=== PATIENT | female | born 1965 | race Caucasian/White ===

== ENCOUNTER 2025-02-21 12:11 | Observation (INO) | payer OTHER ==
--- OUTSIDE RECORDS SUMMARY | 2025-02-21 12:14 | XMS REPORT | Clinical Summary ---
Author Name Unknown Organization [facility] Address [address] [place] [address] Care Team Providers Care Campground Caretaker Name Role Phone Unavailable Primary Care Provider Unavailabl e Social History Tobacco Use Types Packs/Day Years Used Date Smoking Tobacco: Never Assessed Comments Unknown Sex and Gender Information Value Date Recorded Sex Assigned at Not on file Legal Sex Female 4:28 PM CDT Gender Identity Not on file Sexual Orientation Not on file Plan of Treatment Not on file Insurance [employer]
[2025-02-21] MEDS ORDERED: NA CHLORIDE 0.9% 500 ML ONE (12:48)
[2025-02-21] MEDS ORDERED: KETOROLAC 30 MG/ML INJ ONE (12:48)
[2025-02-21 13:08] LABS: Absolute Lymphocytes (CBC) 1.8 K/uL (0.7-4.9); Hematocrit 38.5 % (36.0-45.0); Hemoglobin 12.6 g/dL (12.0-15.0); MCH 26.3 pg (27.0-35.0); MCHC 32.8 g/dL (32.0-36.0); MCV 80.2 fL (80-100); MPV 8.4 fL (7.6-11.3); Nucleated RBC Absolute Count 0.0 (0-0); Nucleated Red Blood Cells % 0.1 % (0-0); RBC Red Blood Cell Count 4.80 M/uL (3.86-4.86); White Blood Count 4.80 thou/uL (4.3-10.9)
[2025-02-21 13:55] LABS: ALT/SGPT 17 U/L (13-56); Albumin 3.7 g/dL (3.4-5.0); Albumin/Globulin Ratio 0.9 (1.1-1.8); Alkaline Phosphatase 73 U/L (45-117); Anion Gap 7.9 mEq/L (5.0-15.0); BUN Blood Urea Nitrogen 19 mg/dL (7-18); Globulin 3.9 g/dL (2.3-3.5); Glucose Level 103 mg/dL (74-106); Potassium 3.9 mEq/L (3.5-5.1)
[2025-02-21 13:57] LABS: AST/SGOT < 10 U/L (15-37)
--- NOTE | 2025-02-21 14:40 | RAD REPORT ---
EXAM: CT Ct Stroke Brain Wo Cont HISTORY: STROKE ALERT COMPARISON: None TECHNIQUE: Multiple contiguous axial images were obtained for a CT of the brain without contrast. Sag ittal and coronal reformats were performed. One or more of the following dose reduction techniques were used: Automated exposure control, adjus tment of the mA and kV according to patient size, and iterative reconstruction. Unless otherwise specified, incidental findings do not require dedicated imaging follow-up. FINDINGS: No evidence of hydrocephalus, intracranial hemorrhage, or extra-axial fluid collection. Mild brain atrophy with mild periventricular and deep white matter chronic microvascular ischemic ch anges present. Partially empty sella incidentally noted. The calvarium is intact. The visualized paranasal sinuses and mastoid air cells are essentially clear . IMPRESSION: No evidence of acute intracranial abnormality. THIS REPORT CONTAINS FINDINGS THAT MAY BE CRITICAL TO PATIENT CARE. The findings were verbally commun icated via telephone to Vignesh Alba on 02/21/2025 2:36 PM.
[2025-02-21] MEDS ORDERED: LORazepam 2 MG/ML VIAL ONE ×2 (14:41→17:42)
[2025-02-21] MEDS ORDERED: MORPHINE 4 MG/ML SYR ONE (14:41)
--- NOTE | 2025-02-21 14:42 | RAD REPORT ---
EXAMINATION: CT Neck Angio CLINICAL INDICATION: Female, 59 years old. [facility] dizziness Bed Name: 18 TECHNIQUE: Axial CT images were obtained from the aortic arch to the skull base after intravenous con trast utilizing angiographic protocol. Multiplanar reformats, as well as 3D post-processing (maximum intensity projection images, volume rendered images and/or shaded surface rendered images) w ere generated and reviewed. One or more of the following dose reduction techniques were used: Automated exposure control, adjustment of the mA and/or kV according to patient size, and/or iterativ e reconstruction. Unless otherwise specified, incidental findings do not require dedicated imaging follow-up. COMPARISON: No prior exam. FINDINGS: AORTA: The imaged aortic arch is normal. Two-vessel arch configuration noted, a normal variant. CCA: No artifact The common carotid arteries are patent and normal in caliber. ICA/ECA: Bilateral internal and external carotid arteries are patent. There is no significant interna l carotid artery stenosis. VERTEBRAL: The cervical vertebral arteries are patent to the skull base. Vertebral arteries are codom inant. SOFT TISSUE: No significant neck soft tissue abnormalities. The visualized lung apices are clear. 3D images confirm these findings. IMPRESSION: No significant flow abnormality of the neck vessels is identified. NASCET criteria used to quantify ICA stenosis, with the following grading scheme: Mild 0-49% stenosis Moderate 50-69% stenosis Severe 70-99% stenosis Reference: [place] Symptomatic Carotid Endarterectomy Trial Collaborators; Wan CINTRON, Arianna STODDARD, Katy RB, et al. Beneficial effect of carotid endarterectomy in symptomatic patients with high-grade carotid stenosis. N Engl J Med. 1990Jan 06;325(7):445-53.
--- NOTE | 2025-02-21 14:43 | RAD REPORT ---
EXAMINATION: CTA HEAD CLINICAL INDICATION: Female, 59 years old. DIZZINESS TECHNIQUE: Axial CT images were obtained through the head after intravenous contrast utilizing angiog raphic protocol with 3D post-processing (maximum intensity projection images, volume rendered images and/or shaded surface rendered images). One or more of the following dose reduction technique s were used: Automated exposure control, adjustment of the mA and/or kV according to patient size, and/or iterative reconstruction. Unless otherwise specified, incidental findings do not require dedic ated imaging follow-up. COMPARISON: No prior exam. FINDINGS: ICA: The petrous, cavernous, and supraclinoid segments of the bilateral internal carotid arteries are normal. KARI: Anterior cerebral arteries are normal bilaterally. The anterior communicating artery is patent. MCA: Middle cerebral arteries are normal bilaterally. FOUNTAIN BRUSH ASSEMBLER: Posterior cerebral arteries are normal bilaterally. Vertebrobasilar: The vertebral arteries are patent. The basilar artery is patent with mild luminal ir regularity along its proximal to mid aspect. 3D images confirm these findings. IMPRESSION: No evidence of hemodynamically significant stenosis or large vessel occlusion.
[2025-02-21 15:11] LABS: PT Prothrombin Time 12.2 SECONDS (10-13.0); PTT, Activated Partial Thromb 31.7 SECONDS (27.2-37.4); Protime INR 1.08
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
--- NOTE | 2025-02-21 15:34 | ER ---
Nurse's Notes [facility] Name: Kavya Schwartz Age: 59 yrs Sex: Female : 1965 Arrival Date: 02/21/2025 Time: 12:11 Bed 18 Private MD: Diagnosis: Weakness;Pain, unspecified;Paresthesia of skin Presentation: 02/21 12:26 Chief complaint: EMS states: toned out to [place] as patient was being kicked out me1 because they didn't have any downstairs rooms and has severe pain all over. At baseline patient has chronic pain but reports her pain is much worse than normal and is 10/10 "numb/tingling/painful" all over, "from bottom to top". Patient is tearful and concerned about her dog that is at the hotel. States the dog is her service dog that helps her walk. Also states, "I cant take this. I found my son in a puddle of blood when he committed suicide and I cant remember things like dates, times and such.". Coronavirus screen: Vaccine status: Patient reports receiving the 2nd dose of the covid vaccine. Ebola Screen: No symptoms or risks identified at this time. Initial Sepsis Screen: Does the patient meet any 2 criteria? HR > 90 bpm. Does the patient have a suspected source of infection? No. Patient's initial sepsis screen is negative. Risk Assessment: Do you want to hurt yourself or someone else? Patient reports no desire to harm self or others. Onset of symptoms is unknown. 12:26 Method Of Arrival: EMS: [facility] 12:26 Acuity: JESE 3 me1 Triage Assessment: 12:30 General: Appears uncomfortable, Behavior is cooperative, appropriate for age, anxious, me1 crying. Pain: Complains of pain in generalized Pain does not radiate. Pain currently is 10 out of 10 on a pain scale. Quality of pain is described as tingling, numb, stinging, Pain began 4 hours ago. Is continuous. EENT: No signs and/or symptoms were reported regarding the EENT system. Neuro: Level of Consciousness is awake, alert, obeys commands, Oriented to person, place, time, situation, Appropriate for age. Cardiovascular: Patient's skin is warm and dry. Respiratory: Airway is patent Respiratory effort is even, unlabored, Respiratory pattern is regular, symmetrical. GI: No signs and/or symptoms were reported involving the gastrointestinal system. : No signs and/or symptoms were reported regarding the genitourinary system. Derm: Skin is intact, is healthy with good turgor, Skin is normal. Musculoskeletal: Circulation, motion, and sensation intact. Range of motion: limited in left hip, left knee and left ankle. Historical: - Allergies: 12:30 STATINS HMG COA REDUCTASE INHIBITORS; me1 - PMHx: 12:30 Hypothyroidism; me1 - PSHx: 12:30 7 surgeries to left leg; me1 - Immunization history:: Adult Immunizations up to date. - Infectious Disease History:: Denies. - Social history:: Smoking status: Patient denies any tobacco usage or history of. Screenin:34 [facility] ED Fall Risk Assessment (Adult) History of falling in the last 3 months, me1 including since admission No falls in past 3 months (0 pts) Confusion or Disorientation No (0 pts) Intoxicated or Sedated No (0 pts) Impaired Gait Yes (1 pt) Mobility Assist Device Used Yes (1 pt) Altered Elimination No (0 pt) Score/Fall Risk Level 0 - 2 = Low Risk Maintained a safe environment, Provided non-skid footwear, Hourly rounding (assess needs \\T\\ fall precautionary measures) done. Abuse screen: Denies threats or abuse. Nutritional screening: No deficits noted. Tuberculosis screening: No symptoms or risk factors identified. 14:44 VAN Screening: Arm Drift: Flaccid or no effort against gravity. Visual Disturbance: No es3 visual disturbance noted. Aphasia: Expressive aphasia noted. Provider notified of +VAN scoring. Neglect: No neglect noted. 16:12 [place] [facility] Protocol Exclusion Criteria: Unable to remain alert for testing: No NPO me1 for medical/surgical reason by provider order No Tracheostomy tube present No No thin liquids due to preexisting dysphagia/baseline modified diet thickened liquids No Brief Cognitive Screen What is your name? Normal, Where are you right now? Normal, What year is it? Normal. Oral Mechanism Examination Facial Symmetry: Normal, Motion: Normal, Lip Closure: Normal, Oral Mechanism Result: Normal. 3 oz Water Swallow Challenge: Pt able to drink all water without stopping, coughing, choking or throat clearing: Yes Result: GREGORIO HOLLAND Notified: Vignesh Alba DO. Assessment: 12:34 General: See triage assessment. nd1 14:00 Reassessment: code heath called. PT yelling, screaming and cursing in CT room refusing ss CT. 14:01 Reassessment: Notified Dr Alba that patient has reported the inability to move her left me1 arm, that her ability to move right arm is limited and than normally she can move both without difficulty. Also reports dizziness when moved from lying to sitting. 14:09 Reassessment: Dr Alba at bedside. Patient reports her left arm has stopped working me1 since she has been to the ER. Code stroke called. 14:24 Reassessment: Dr. Alba at bedside upon patient request. Vital Signs: 12:26 BP 152 / 90; Pulse 90; Resp 18; Temp 98.4; Pulse Ox 100% ; Weight 79.38 kg; Height 5 me1 ft. 9 in. ; Pain 10/10; 13:00 BP 152 / 88; Pulse 79; Resp 16; Pulse Ox 100% ; me1 14:00 BP 158 / 89; Pulse 75; Resp 17; Pulse Ox 100% ; me1 14:30 BP 127 / 87; Pulse 73; Resp 16; Pulse Ox 98% ; me1 15:00 BP 144 / 86; Pulse 72; Resp 15; Pulse Ox 98% ; me1 15:11 Pain 6/10; me1 15:30 BP 146 / 92; Pulse 79; Resp 17; Pulse Ox 100% ; me1 16:00 BP 135 / 81; Pulse 65; Resp 17; Pulse Ox 100% ; me1 16:30 BP 135 / 81; Pulse 65; Resp 15; Pulse Ox 100% ; me1 17:00 BP 140 / 97; Pulse 70; Resp 15; Pulse Ox 100% ; me1 17:30 BP 134 / 90; Pulse 76; Resp 16; Pulse Ox 99% ; me1 18:00 BP 131 / 83; Pulse 78; Resp 17; Pulse Ox 98% ; me1 12:26 Body Mass Index 25.84 (79.38 kg, 175.26 cm) me1 12:26 Pain Scale: Adult me1 15:11 Pain Scale: Adult me1 NIH Stroke Scale Scores: 14:30 NIHSS Score: 10 me1 14:44 NIHSS Score: 10 es3 14:56 NIHSS Score: 10 ms3 ED Course: 12:13 Patient arrived in ED. ms3 12:13 Vignesh Alba DO is Attending Physician. ms3 12:23 Monserrat Ramirez, RN is Primary Nurse. me1 12:30 Triage completed. me1 12:30 Arm band placed on Patient placed in an exam room. me1 12:34 Patient has correct armband on for positive identification. Bed in low position. Call me1 light in reach. Side rails up X2. Provided Education on: POC. Verbalized understanding.. Client placed on continuous cardiac and pulse oximetry monitoring. NIBP monitoring applied. tube closing machine operator on. Pulse ox on. NIBP on. 12:34 No provider procedures requiring assistance completed. me1 13:02 Missed attempt(s): 20 gauge in right antecubital area. Bleeding controlled, band aid ts3 applied, catheter tip intact. 13:03 Missed attempt(s): 22 gauge in right hand. Bleeding controlled, band aid applied, ts3 catheter tip intact. 13:03 Initial lab(s) drawn, by lab instructor, sent to lab. ts3 13:10 Inserted saline lock: 22 gauge in right antecubital area, using aseptic technique. me1 14:35 CT Stroke Brain w/o Contrast In Process Unspecified. EDMS 14:36 CT Head Angio In Process Unspecified. EDMS 14:36 CT Neck Angio In Process Unspecified. EDMS 15:04 Radiology exam delayed due to PT IN CT AND REGULAR WORKUP ONCE BACK IN ED. [id number] 15:10 Radiology exam delayed due to entered pt room to which pt stated "I'm not very nice [id number] right now so you'll have to wait", I then notified pt of a 30-45 minute wait time for next availability to which she agreed. 15:11 EKG done, by environmental compliance technician. reviewed by Vignesh Alba DO. ts3 15:32 Chavez Dickey MD is Hospitalizing Provider. ms3 16:13 Stroke CXR 1 View In Process Unspecified. EDMS 18:20 Patient admitted, IV remains in place. me1 Administered Medications: 13:12 Drug: NS 0.9% IV 500 ml 500 ml IV at 1 bolus once; to be given as a bolus over 30 me1 minutes Volume: 500 ml; Route: IV; Rate: 1 bolus; Site: right antecubital; 14:36 Follow up: Response: No adverse reaction; IV Status: Completed infusion; IV Intake: me1 500ml 13:22 Not Given (Patient Refused): [id number] mg 10 mg IVP once me1 14:30 Drug: Ativan IVP 0.5 mg IVP once Route: IVP; Site: right antecubital; me1 15:11 Follow up: Response: No adverse reaction; Anxiety decreased me1 14:30 Drug: morphine IVP or IV 4 mg IVP once over 4 mins Route: IVP; Infused Over: 4 mins; me1 Site: right antecubital; 15:11 Follow up: Pain 6/10 Adult; Response: No adverse reaction; Pain is decreased me1 16:51 Drug: Hydrocodone-Acetaminophen PO (7.5 mg-325 mg) 1 tabs PO once Route: PO; me1 17:30 Follow up: Response: No adverse reaction; Pain is decreased me1 17:48 Drug: Ativan IVP 0.5 mg IVP once Route: IVP; Site: right antecubital; me1 Medication: 12:34 VIS not applicable for this client. me1 Intake: 14:36 IV: 500ml; Total: 500ml. me1 Outcome: 15:33 Decision to Hospitalize by Provider. ms3 18:20 Admitted to Med/surg accompanied by tech, via stretcher, room 223, with chart, Report me1 called to tubed up, receipt confirmed with Dennifer. 18:20 Condition: stable 18:20 Instructed on the need for admit, 18:21 Patient left the ED. me1 NIH Stroke Scale - NIH Stroke Score Date: 02/21/2025 Time: 14:30 Total Score = 10 10. Dysarthria (speech clarity - read or repeat words) - 0(Normal) 11. Extinction and Inattention (visual/tactile/auditory/spatial/personal) - 0(No abnormality) 1a. Level of Consciousness (LOC) - 0(Alert) 1b. Level of Consciousness (LOC) (Month \\T\\ Age) - 0(Both) 1c. LOC Commands (Open \\T\\ Closes Eyes/Fire Chief) - 0(Both) 2. Best Gaze (Lateral Gaze Paresis) - 0(Normal) 3. Visual Field Loss - 0(No visual loss) 4. Facial Palsy - 0(Normal) 5a. Left Arm: Motor (10-second hold) - 4(No movement) 5b. Right Arm: Motor (10-second hold) - 0(No drift) 6a. Left Leg: Motor (5-second hold - always test supine) - 2(Drift, some effort against gravity) 6b. Right Leg: Motor (5-second hold - always test supine) - 0(No drift) 7. Limb Ataxia (finger/nose \\T\\ heel/slaughter - test with eyes open) - 2(Present in two limbs) 8. Sensory Loss (pinprick arms/legs/face) - 1(Mild to moderate loss) 9. Best Language: Aphasia (description/naming/reading) - 1(Mild to moderate aphasia) Initials: me1 NIH Stroke Scale - NIH Stroke Score Date: 02/21/2025 Time: 14:44 Total Score = 10 10. Dysarthria (speech clarity - read or repeat words) - 0(Normal) 11. Extinction and Inattention (visual/tactile/auditory/spatial/personal) - 0(No abnormality) 1a. Level of Consciousness (LOC) - 0(Alert) 1b. Level of Consciousness (LOC) (Month \\T\\ Age) - 0(Both) 1c. LOC Commands (Open \\T\\ Closes Eyes/Fire Chief) - 0(Both) 2. Best Gaze (Lateral Gaze Paresis) - 0(Normal) 3. Visual Field Loss - 0(No visual loss) 4. Facial Palsy - 0(Normal) 5a. Left Arm: Motor (10-second hold) - 4(No movement) 5b. Right Arm: Motor (10-second hold) - 0(No drift) 6a. Left Leg: Motor (5-second hold - always test supine) - 2(Drift, some effort against gravity) 6b. Right Leg: Motor (5-second hold - always test supine) - 0(No drift) 7. Limb Ataxia (finger/nose \\T\\ heel/slaughter - test with eyes open) - 2(Present in two limbs) 8. Sensory Loss (pinprick arms/legs/face) - 1(Mild to moderate loss) 9. Best Language: Aphasia (description/naming/reading) - 1(Mild to moderate aphasia) Initials: es3 NIH Stroke Scale - NIH Stroke Score Date: 02/21/2025 Time: 14:56 Total Score = 10 10. Dysarthria (speech clarity - read or repeat words) - 0(Normal) 11. Extinction and Inattention (visual/tactile/auditory/spatial/personal) - 0(No abnormality) 1a. Level of Consciousness (LOC) - 0(Alert) 1b. Level of Consciousness (LOC) (Month \\T\\ Age) - 0(Both) 1c. LOC Commands (Open \\T\\ Closes Eyes/Fire Chief) - 0(Both) 2. Best Gaze (Lateral Gaze Paresis) - 0(Normal) 3. Visual Field Loss - 0(No visual loss) 4. Facial Palsy - 0(Normal) 5a. Left Arm: Motor (10-second hold) - 4(No movement) 5b. Right Arm: Motor (10-second hold) - 0(No drift) 6a. Left Leg: Motor (5-second hold - always test supine) - 2(Drift, some effort against gravity) 6b. Right Leg: Motor (5-second hold - always test supine) - 0(No drift) 7. Limb Ataxia (finger/nose \\T\\ heel/slaughter - test with eyes open) - 2(Present in two limbs) 8. Sensory Loss (pinprick arms/legs/face) - 1(Mild to moderate loss) 9. Best Language: Aphasia (description/naming/reading) - 1(Mild to moderate aphasia) Initials: ms3 Signatures: Dispatcher [employer] Flakita Lovell RN RN ss Sims, Marcus, DO DO ms3 Mily Johnson [id number] Monserrat Ramirez RN RN me1 Dyan Martin RN RN es3 Hailey Jessica ts3 Corrections: (The following items were deleted from the chart) 17:29 16:12 [place] [facility] Protocol Exclusion Criteria: Unable to remain alert for me1 testing: No NPO for medical/surgical reason by provider order No Tracheostomy tube present No No thin liquids due to preexisting dysphagia/baseline modified diet thickened liquids No Brief Cognitive Screen What is your name? Normal, Where are you right now? Normal, What year is it? Normal. Oral Mechanism Examination Facial Symmetry: Normal, Motion: Normal, Lip Closure: Normal, Oral Mechanism Result: Normal. 3 oz Water Swallow Challenge: Pt able to drink all water without stopping, coughing, choking or throat clearing: Yes Result: PASS Notified: Vignesh Alba DO me1
--- NOTE | 2025-02-21 16:26 | RAD REPORT ---
EXAMINATION: ONE VIEW CHEST XR CLINICAL INDICATION: Female, 59 years old.,left arm weakness TECHNIQUE: Frontal chest projection is submitted. Examination is limited by patient positioning and t echnique. COMPARISON: No prior exam. FINDINGS: The lungs are well inflated and clear. Exclusion of the right lung apex limits evaluation. No pneumo thorax or sizable effusion. The heart is normal in size. Mediastinal contours are unremarkable. IMPRESSION: No acute intrathoracic abnormalities.
[2025-02-21] MEDS ORDERED: HYDROCODONE/APAP 7.5/325 MG TAB PO PRN (16:40)
[2025-02-21] MEDS ORDERED: NA CHLORIDE 0.9% 1,000 ML IV SCH (17:00)
--- NOTE | 2025-02-21 17:02 | P.HP ---
Certification for Inpatient Patient admitted to: Observation With expected LOS: <2 Midnights Patient will require the following post-hospital care: None Practitioner: I am a practitioner with admitting privileges, knowledge of patient current condition, hospital course, and medical plan of care. Services: Services provided to patient in accordance with Admission requirements found in Title 42 Section 412.3 of the Code of Federal Regulations <Rodo Cardona - Last Filed: 02/21/25 16:58> Patient History Date of Service: 02/21/25 Reason for admission: Left upper extremity weakness/dizziness History of Present Illness: 59-year-old female with history of chronic pain, hypothyroidism, anxiety/depression, TBI? Presents to the emergency department with chief complaint of severe generalized pain. She has a history of chronic pain and has been staying in a local hotel room/her car with her service dog recently. During her stay in the emergency department it was noted that she is having difficulty moving her left upper extremity, is unclear when this began and she cannot be cleared by to herself. Code stroke was called and patient was brought down for CT, she had CT of her head without contrast was negative for acute findings as well as a CTA of the head and neck which were negative for LVO. Patient is pending an MRI at this time, case was discussed by ED staff with neurology who did not recommend tPA given unclear onset of symptoms and unclear history. Labs are unremarkable. Patient be admitted for left upper extremity weakness, dizziness, she will receive MRI, PT and OT as well as neurology consultation. - Past Medical/Surgical History -: Chronic pain -: ADHD -: Traumatic brain injury? -: Multiple left lower extremity surgeries -: Multiple low back surgeries -: Appendectomy Psychosocial/ Personal History: Was staying in hotel, currently staying in her vehicle with her dog - Social History Alcohol use: No CD- Drugs: No Caffeine use: Yes Place of Residence: Homeless <Rodo Cardona - Last Filed: 02/21/25 16:58> Date of Service: 02/21/25 <Chavez Dickey - Last Filed: 02/27/25 00:59> Review of Systems 10-point ROS is otherwise unremarkable General: Other (back pain) Neurological: Weakness, Confusion, Other Lymphatics: Other <Rodo Cardona - Last Filed: 02/21/25 16:58> Physical Examination - Physical Exam General: Alert, In no apparent distress, Oriented x3 HEENT: Atraumatic, PERRLA, EOMI Neck: Supple, 2+ carotid pulse no bruit, No LAD Respiratory: Clear to auscultation bilaterally, Normal air movement Cardiovascular: Regular rate/rhythm, Normal S1 S2 Gastrointestinal: Normal bowel sounds, No tenderness Musculoskeletal: No tenderness Integumentary: No rashes Neurological: Other (NIH score is 10, left upper extremity weakness, left lower extremity weakness, dizziness) - Studies Laboratory Data (last 24 hrs) 02/21/25 02/21/25 02/21/25 14:40 14:09 13:05 WBC Hgb Hct Plt Count PT 12.2 INR 1.08 APTT 31.7 Sodium Cancelled 139 Potassium Cancelled 3.9 BUN Cancelled 19 H Creatinine Cancelled 0.89 Glucose Cancelled 103 Total Bilirubin 0.3 AST < 10 L ALT 17 Alkaline Phosphatase 73 02/21/25 12:58 WBC 4.80 Hgb 12.6 Hct 38.5 Plt Count 327 PT INR APTT Sodium Potassium BUN Creatinine Glucose Total Bilirubin AST ALT Alkaline Phosphatase <Rodo Cardona - Last Filed: 02/21/25 16:58> Assessment and Plan - Plan Assessment: Left upper extremity weakness, left lower extremity weakness-rule out CVA Chronic pain Depression/anxiety ADHD Plan: Left upper extremity weakness, left lower extremity weakness-rule out CVA CT head without contrast negative for acute findings CTA head and neck negative for LVO MRI brain pending Discussed with neurology by ED staff, not a candidate for tPA at this time given unclear onset PT/OT consulted, neurology consultation placed Continue aspirin, statin, Plavix Chronic pain As needed [place] Depression/anxiety ADHD Continue home medications when verified DVT PPX: Lovenox Code status: Full code Discharge Plan: Home Plan to discharge in: 24 Hours - Advance Directives Does patient have a Living Will: No Does patient have a Durable POA for Healthcare: No - Code Status/Comfort Care Code Status Assessed: Yes (Full code) Critical Care: No Time Spent Managing Pts Care (In Minutes): 70 <Rodo Cardona - Last Filed: 02/21/25 16:58> Date of Service: 02/21/25 Patient was seen and examined. Events of the last 24 hours have been noted. Spoke with with EILEEN regarding patient's clinical picture after evaluating and examining the patient independently. I performed a substantial part of the MDM during this patient's care today. I personally made or approved the documented management plan and acknowledge its risk of complications. I agree with the find ings and documentation provided in the EILEEN's notes. <Chavez Dickey - Last Filed: 02/27/25 00:59>
[2025-02-21] MEDS ORDERED: ALPRAZOLAM 0.5 MG TABLET PO PRN (17:15)
[2025-02-21 18:25] VITALS: TEMP 98.4
[2025-02-21 18:44] VITALS: BP 131/83; O2SAT 98
[2025-02-21] MEDS ORDERED: ATORVASTATIN 20 MG TAB PO SCH (21:00)
[2025-02-22] MEDS ORDERED: CLOPIDOGREL 75 MG TABLET PO SCH (09:00)
[2025-02-22] MEDS ORDERED: ENOXAPARIN 40 MG/0.4 ML SQ SCH (09:00)
[2025-02-22] MEDS ORDERED: ASPIRIN EC 81 MG TAB PO SCH (09:00)
== END 2025-02-21 21:51 | disposition left against medical advice (07) ==
LOC: ER 12:11 → ERHOLD 16:39 → 2ND 17:29 → UNDODISOB 18:45
PROVIDERS: ADMIT Hospitalist; ATTEND Hospitalist
DX: R53.1 Weakness (principal); R42 Dizziness and giddiness; R20.2 Paresthesia of skin; E03.9 Hypothyroidism, unspecified; F41.9 Anxiety disorder, unspecified; G89.29 Other chronic pain; F90.9 Attention-deficit hyperactivity disorder, unspecified type
CPT/HCPCS: 96361; 93005; 85025; 36415; 85610; 82947; 85730; 80053; 70496; 70498; 70450; 71045; 96375; 96374; 99285; Q9967; J7040; G0378 ×2

== ENCOUNTER 2025-03-11 20:04 | Emergency (ER) | payer OTHER ==
--- NOTE | 2025-03-11 21:47 | RAD REPORT ---
EXAM: CT brain without contrast HISTORY: DIZZINESS COMPARISON: None TECHNIQUE: Multiple contiguous axial images were obtained and a CT of the brain without contrast. Sag ittal and coronal reformats were performed. One or more of the following dose reduction techniques were used: Automated exposure control, adjust ment of the mA and/or kV according to patient size, and/or iterative reconstruction. FINDINGS: No evidence of hydrocephalus, intracranial hemorrhage, or extra-axial fluid collection. Mild generalized brain atrophy. No evidence of midline shift or areas of brain edema. The calvarium is intact. The visualized paranasal sinuses and mastoid air cells are essentially clear . IMPRESSION: No evidence of acute intracranial abnormality.
[2025-03-11 22:10] LABS: Absolute Lymphocytes (CBC) 1.9 K/uL (0.7-4.9); Hematocrit 35.7 % (36.0-45.0); Hemoglobin 12.0 g/dL (12.0-15.0); MCH 26.6 pg (27.0-35.0); MCHC 33.5 g/dL (32.0-36.0); MCV 79.4 fL (80-100); MPV 7.9 fL (7.6-11.3); Nucleated RBC Absolute Count 0.0 (0-0); Nucleated Red Blood Cells % 0.2 % (0-0); RBC Red Blood Cell Count 4.49 M/uL (3.86-4.86); White Blood Count 5.30 thou/uL (4.3-10.9)
--- NOTE | 2025-03-11 22:10 | RAD REPORT ---
EXAMINATION: ONE VIEW CHEST XR CLINICAL INDICATION: dizziness, syncope near TECHNIQUE: Frontal chest projection is submitted. Examination is limited by patient positioning and t echnique. COMPARISON: 02/21/2025 FINDINGS: Mild linear atelectasis in left lung base. Lungs otherwise clear. The heart is upper limit of normal in size. No displaced fractures identified. IMPRESSION: No acute intrathoracic abnormalities.
[2025-03-11 22:16] LABS: PT Prothrombin Time 11.9 SECONDS (10-13.0); Protime INR 1.05
[2025-03-11 22:30] LABS: ALT/SGPT 16 U/L (13-56); Albumin 3.4 g/dL (3.4-5.0); Albumin/Globulin Ratio 0.9 (1.1-1.8); Alkaline Phosphatase 62 U/L (45-117); Anion Gap 7.7 mEq/L (5.0-15.0); BUN Blood Urea Nitrogen 15 mg/dL (7-18); Globulin 3.6 g/dL (2.3-3.5); Glucose Level 113 mg/dL (74-106); Magnesium 2.2 mg/dL (1.6-2.4); NT PRO-BNP 10 pg/mL (<125); Potassium 3.7 mEq/L (3.5-5.1); Troponin High Sensitivity 3.4 pg/mL (<58.9)
[2025-03-11 22:46] LABS: AST/SGOT < 10 U/L (15-37); Bilirubin Indirect, Calculated 0.1 mg/dL (0.2-0.8)
--- NOTE | 2025-03-11 23:53 | ER ---
Nurse's Notes [facility] Name: Kavya Schwartz Age: 59 yrs Sex: Female : 1965 Arrival Date: 03/11/2025 Time: 20:04 Bed 13 Private MD: Diagnosis: UTI/ Urinary tract infection, site not specified;Dizziness and giddiness;Anxiety disorder, unspecified;Low back pain-chronic Presentation: 03/11 20:11 Chief complaint: Patient states: She has taken 3 antibiotics and thinks she still has a me1 UTI. Reports dark colored urine. c/o fatigue and difficulty keeping her train of thought. Reports she has taken Macrobid, Bactrim and Cipro. Coronavirus screen: At this time, the client does not indicate any symptoms associated with coronavirus-19. Ebola Screen: No symptoms or risks identified at this time. Initial Sepsis Screen: Does the patient meet any 2 criteria? HR > 90 bpm. Does the patient have a suspected source of infection? No. Patient's initial sepsis screen is negative. Risk Assessment: Do you want to hurt yourself or someone else? Patient reports no desire to harm self or others. Onset of symptoms is unknown. 20:11 Method Of Arrival: Ambulatory me1 20:11 Acuity: JESE 3 me1 Triage Assessment: 23:08 General: Appears in no apparent distress. ss12 23:58 General: Behavior is. ss12 Historical: - Allergies: 20:15 STATINS HMG COA REDUCTASE INHIBITORS; me1 - PMHx: 20:15 Hypothyroidism; vertigo (Unknown); ADHD (Unknown); anxiety (Unknown); me1 - PSHx: 20:15 7 surgeries to left leg; me1 - Immunization history:: Adult Immunizations up to date. - Infectious Disease History:: Denies. - Social history:: Smoking status: Patient denies any tobacco usage or history of. Screenin:07 [facility] ED Fall Risk Assessment (Adult) History of falling in the last 3 months, ss12 including since admission No falls in past 3 months (0 pts) Confusion or Disorientation No (0 pts) Intoxicated or Sedated No (0 pts) Impaired Gait No (0 pts) Mobility Assist Device Used No (0 pt) Altered Elimination No (0 pt) Score/Fall Risk Level 0 - 2 = Low Risk Oriented to surroundings, Maintained a safe environment, Educated pt \\T\\ family on fall prevention, incl call for assistance when getting out of bed, Assessed \\T\\ reinforced patient's understanding of fall precautions. Abuse screen: Denies threats or abuse. Denies injuries from another. Nutritional screening: No deficits noted. Tuberculosis screening: No symptoms or risk factors identified. Assessment: 21:00 General: Appears in no apparent distress. comfortable, Behavior is anxious. Pain: ss12 Denies pain. Neuro: Level of Consciousness is awake, alert, obeys commands, Oriented to person, place, situation. Cardiovascular: Patient's skin is warm and dry. Respiratory: No deficits noted. Airway is patent Respiratory effort is even, unlabored, Respiratory pattern is regular, symmetrical. GI: No deficits noted. Abdomen is flat, non-distended. : No deficits noted. Reports urinary frequency. EENT: No deficits noted. Derm: Skin is intact, Skin is dry, Skin is pink, warm \\T\\ dry. normal. Musculoskeletal: No deficits noted. No signs and/or symptoms reported regarding the musculoskeletal system. 22:00 Reassessment: Patient appears in no apparent distress at this time. Patient and/or ss12 family updated on plan of care and expected duration. Pain level reassessed. Patient is alert, oriented x 3, equal unlabored respirations, skin warm/dry/pink. 23:00 Reassessment: Patient appears in no apparent distress at this time. Patient and/or ss12 family updated on plan of care and expected duration. Pain level reassessed. Patient is alert, oriented x 3, equal unlabored respirations, skin warm/dry/pink. 23:55 Reassessment: PATIENT ON THE HALLWAY ATTEMPTING TO LEAVE, UNCOOPERATIVE, NOT FOLLOWING ha1 INSTRUCTIONS. STATING" THAT NOBODY IS LISTENING TO HER. REQUESTING TO SEE A DOCTOR." I EXPLAINED THAT IF SHE WOULD GO BACK INTO THE ROOM THE DOCTOR WOULD GO TALK TO HER OR IF SHE LEAVES SHE HER IV WOULD HAVE TO BE REMOVE. PATIENT REMOVED IV AND WALKED OUT OF ER. PATIENT REFUSED COBAN WRAP TO BE APPLIED TO IV SITE. 03/12 00:00 Reassessment: Reassessment: DR. ART FOLLOWED PATIENT AND WENT TO TALK TO PATIENT ha1 IN TRIAGE ROOM. Vital Signs: 03/11 20:11 BP 136 / 92; Pulse 95; Resp 16; Temp 98.4; Pulse Ox 100% ; Pain 0/10; me1 22:00 BP 149 / 76; Pulse 89; Resp 16; Pulse Ox 98% on R/A; ss12 23:13 BP 122 / 82; Pulse 78; Resp 16; Pulse Ox 99% on R/A; ss12 20:11 Pain Scale: Adult [facility] [place] ED Course: 20:08 Patient arrived in ED. im 20:08 Ashlee Champagne PA-C is PHCP. sb4 20:08 Louis Art MD is Attending Physician. sb4 20:15 Triage completed. me1 20:15 Arm band placed on Patient placed in an exam room. me1 21:09 Marlen Gee, RN is Primary Nurse. ss12 21:41 Head Brain Wo Cont CT In Process Unspecified. EDMS 22:08 XRAY Chest (1 view) In Process Unspecified. EDMS 23:08 Patient has correct armband on for positive identification. Provided Education on: plan ss12 of care. 23:08 No provider procedures requiring assistance completed. ss12 23:35 UDS Sent. ss12 03/12 00:30 IV discontinued, intact, bleeding controlled, No redness/swelling at site. Pressure ha1 dressing applied. Administered Medications: No medications were administered Medication: 03/11 23:08 VIS not applicable for this client. ss12 Outcome: 23:50 Condition: stable ha1 03/12 00:30 Discharged to home ambulatory, ha1 Discharge instructions given to patient, Instructed on discharge instructions, follow up and referral plans. Demonstrated understanding of instructions, follow-up care, 00:30 Patient left the ED. ha1 00:32 Discharge ordered by . sb4 Signatures: Dispatcher [employer] EDND Chelsey Bernardo RN RN ha1 Ashlee Champagne PA-C PA-C sb4 Stephanie Andre Monserrat Ramirez RN RN ak1 Marlen Gee RN RN ss12 Corrections: (The following items were deleted from the chart) 00:57 00:00 Reassessment: ss12 ha1 00:58 00:58 Patient left the ED. ha1 ha1
--- NOTE | 2025-03-11 23:54 | EDPHYS ---
Physician Documentation [facility] Name: Kavya Schwartz Age: 59 yrs Sex: Female : 1965 Arrival Date: 03/11/2025 Time: 20:04 Bed 13 Private MD: ED Physician Louis Art HPI: 03/11 23:36 This 59 yrs old Female presents to ER via Ambulatory with complaints of Urinary Problem.sb4 23:40 Patient presents today with complaints of an ongoing UTI. She denies any urinary sb4 symptoms, but states that her urine has been dark and she is on her third round of antibiotics for this, currently on Macrobid. She denies any fever or chills, flank flank pain, nausea, or vomiting. She states that she feels dizzy and weak and like she dissociates but does have a history of vertigo and anxiety. Historical: - Allergies: 20:15 STATINS HMG COA REDUCTASE INHIBITORS; me1 - PMHx: 20:15 Hypothyroidism; vertigo (Unknown); ADHD (Unknown); anxiety (Unknown); me1 - PSHx: 20:15 7 surgeries to left leg; me1 - Immunization history:: Adult Immunizations up to date. - Infectious Disease History:: Denies. - Social history:: Smoking status: Patient denies any tobacco usage or history of. ROS: 23:40 Constitutional: Negative for fever, chills, and weight loss, sb4 23:40 : Positive for per HPI, 23:40 Neuro: Positive for dizziness, 23:40 All other systems are negative, Exam: 23:40 Constitutional: This is a well developed, well nourished patient who is awake, alert, sb4 and in no acute distress. Head/Face: Normocephalic, atraumatic. Eyes: Extra-ocular motions intact. Periorbital areas with no swelling, redness, or edema. ENT: Mucous membranes moist. Cardiovascular: Regular rate and rhythm with a normal S1 and S2. Respiratory: No increased work of breathing, no retractions or nasal flaring. Abdomen/GI: Soft, non-tender, no distension. Back: No spinal tenderness. No costovertebral tenderness. Full range of motion. Skin: Warm, dry with normal turgor. Normal color with no rashes, no lesions, and no evidence of cellulitis. 23:48 Neuro: Motor: moves all fours, Gait: is steady, at a normal pace, without difficulty, sb4 Vital Signs: 20:11 BP 136 / 92; Pulse 95; Resp 16; Temp 98.4; Pulse Ox 100% ; Pain 0/10; me1 22:00 BP 149 / 76; Pulse 89; Resp 16; Pulse Ox 98% on R/A; ss12 23:13 BP 122 / 82; Pulse 78; Resp 16; Pulse Ox 99% on R/A; ss12 20:11 Pain Scale: Adult me1 MDM: 20:09 Medical Screening Exam initiated sb4 23:53 Data reviewed: vital signs, nurses notes, lab test result(s), radiologic studies. ED sb4 course: Patient eloped after workup being complete, prior to urine resulting and prior to discussing results with her. She pulled her own IV out. 03/12 00:01 ED course: Per RN, patient was upset that she saw a PA and not a doctor. She left sb4 before I could notify the attending physician to see the patient.. 00:30 ED course: Patient ended up walking back in the lobby where ED physician, Dr. Art sb4 took a copy of all results and discussed them with patient. All questions were answered and she left. Will update dispo to informed discharge. 01:04 ED course: Urine was questionably positive for UTI, the entire UA did not result. She sb4 still has several days of her Macrobid left, instructed to continue in entirety. 01:04 Differential diagnosis: UTI, vertigo, anxiety, drug abuse, EtOH abuse. Counseling: I sb4 had a detailed discussion with the patient and/or guardian regarding the historical points, exam findings, and any diagnostic results supporting the discharge/admit diagnosis, lab results, radiology results, the need for outpatient follow up, for definitive care, to return to the emergency department if symptoms worsen or persist or if there are any questions or concerns that arise at home. 03/11 20:16 Order name: Basic Metabolic Panel; Complete Time: 23:02 sb4 03/11 20:16 Order name: CBC with Diff; Complete Time: 22:14 sb4 03/11 20:16 Order name: LFT's; Complete Time: 23:02 sb4 03/11 20:16 Order name: Magnesium; Complete Time: 23:02 sb4 03/11 20:16 Order name: NT PRO-BNP; Complete Time: 23:02 sb4 03/11 20:16 Order name: PT-INR; Complete Time: 22:18 sb4 03/11 20:16 Order name: Troponin HS; Complete Time: 23:02 sb4 03/11 20:16 Order name: UA Rfx Cristian Cult if indicated; Complete Time: 00:11 sb4 03/11 21:44 Order name: UDS; Complete Time: 00:04 sb4 03/11 21:44 Order name: ETOH Level; Complete Time: 22:30 sb4 03/11 20:16 Order name: XRAY Chest (1 view); Complete Time: 22:14 sb4 03/11 20:16 Order name: Head Brain Wo Cont CT; Complete Time: 21:47 sb4 03/11 20:16 Order name: EKG; Complete Time: 20:16 sb4 03/11 20:16 Order name: Cardiac monitoring sb4 03/11 20:16 Order name: EKG - Nurse/Tech sb4 03/11 20:16 Order name: IV Saline Lock sb4 03/11 20:16 Order name: Labs collected and sent sb4 03/11 20:16 Order name: O2 Per Protocol sb4 03/11 20:16 Order name: O2 Sat Monitoring sb4 Administered Medications: No medications were administered Disposition: 00:28 Co-signature as Attending Physician, Louis Art MD I agree with the assessment sp4 and plan of care. I reviewed the patient's care provided by Advanced Practice Provider \T\ agree w/ the diagnosis \T\ care plan. I personally saw the pt \T\ performed a substantive portion of the visit, incldng all aspects of the (History/Exam/Medical Decision Making). Disposition Summary: 03/12/25 00:32 Discharge Ordered Notes: Location: Home sb4 Problem: new sb4 Symptoms: are unchanged sb4 Condition: Stable sb4 Diagnosis - UTI/ Urinary tract infection, site not specified sb4 - Dizziness and giddiness sb4 - Anxiety disorder, unspecified sb4 - Low back pain - chronic sb4 Followup: sb4 - With: Emergency Department - When: As needed - Reason: Trouble breathing, Worsening of condition Forms: - Medication Reconciliation Form sb4 - Antibiotic Education sb4 - Prescription Opioid Use sb4 - Patient Portal Instructions sb4 - Leadership Thank You Letter sb4 Signatures: Dispatcher [employer] EDAshlee Freeman, COLIN SHAW sb4 Louis Art MD MD sp4 Monserrat Ramirez, RN RN me1 Corrections: (The following items were deleted from the chart) 03/11 20:16 20:16 BASIC METABOLIC PANEL+C.LAB.BRZ ordered. EDMS EDMS 20:16 20:16 CBC+H.LAB.BRZ ordered. EDMS EDMS 20:16 20:16 HEPATIC FUNCTION+C.LAB.BRZ ordered. EDMS EDMS 20:16 20:16 MAGNESIUM+C.LAB.BRZ ordered. EDMS EDMS 20:16 20:16 PROBNP+C.LAB.BRZ ordered. EDMS EDMS 20:16 20:16 PROTIME (+INR)+COAG.LAB.BRZ ordered. EDMS EDMS 20:16 20:16 Troponin High Sensitivity+C.LAB.BRZ ordered. EDMS EDMS 20:16 20:16 UA Rfx Cristian Cult if indicated+U.LAB.BRZ ordered. EDMS EDMS 20:16 20:16 Head Brain Wo Cont+CT.RAD.BRZ ordered. EDMS EDMS 03/12 00:31 03/11 23:53 after being seen by provider sb4 sb4 03/12 00:31 03/11 23:53 other sb4 sb4
[2025-03-12 00:03] LABS: METHAMPHETAM POSITIVE (NEGATIVE); THC Cannibis NEGATIVE (NEGATIVE)
[2025-03-12 00:11] LABS: Urine Microscopic Reflex YN NO UMIC
[2025-03-12 05:52] VITALS: TEMP 98.4
[2025-03-12 05:55] VITALS: BP 122/82; O2SAT 99
== END 2025-03-12 00:58 | disposition home or self-care (01) ==
LOC: ER 20:04
DX: N39.0 Urinary tract infection, site not specified (principal); F41.9 Anxiety disorder, unspecified; M54.50 Low back pain, unspecified
CPT/HCPCS: 36415; 70450; 71045; 80048; 80076; 80307; 81003; 82077; 83735; 83880; 84484; 85025; 85610; 99283